=== PATIENT | female | born 1980 | race African-American/Black ===

== ENCOUNTER 2020-10-27 23:06 | Emergency (ER) | payer MEDICAID ==
[~2020-10-27] VITALS: Ht 170.2 cm; Wt 83.0 kg
[2020-10-27] MEDS ORDERED: HYDROCODONE/ACETAMINOPHEN 5/325MG TABLET PO ONE (23:30)
[2020-10-27] MEDS ORDERED: BACITRACIN ZINC OINT UDPKT TOP ONE (23:30)
[2020-10-27] MEDS ORDERED: LIDOCAINE HCL/PF 1% 10 MG/ML 5ML VIAL INFIL ONE (23:30)
[2020-10-27 23:36] VITALS: BP 151/95
[2020-10-28] MEDS ORDERED: CEPHALEXIN 250MG CAPSULE PO ONE (01:00)
[2020-10-28] MEDS ORDERED: DOXYCYCLINE HYCLATE 100MG CAPSULE PO ONE (01:00)
[2020-10-28] MEDS ORDERED: DOXY100C2 MT (01:02)
[2020-10-28] MEDS ORDERED: CEPH500C2 MT (01:02)
[2020-10-28] MEDS ORDERED: IBUP-2029 MT (01:03)
[2020-10-28] MEDS ORDERED: HYDR-4001 MT (01:18)
== END 2020-10-28 02:17 | disposition home or self-care (01) ==
LOC: ER 23:06
DX: L03.012 Cellulitis of left finger (principal); I10 Essential (primary) hypertension
CPT/HCPCS: 10060; 73130; 81025; 99284; J3490; Z7610

== ENCOUNTER 2020-11-26 22:59 | Emergency (ER) | payer MEDICAID ==
[~2020-11-26] VITALS: Ht 170.2 cm; Wt 75.0 kg
[~2020-11-26 22:59] MED LIST: CEPH500C2 MT; DOXY100C5 MT; HYDR-4001 MT; IBUP-2029 MT
[2020-11-26 23:05] VITALS: BP 133/90
[2020-11-27 00:46] LABS: BASOPHILS % 1.3 % (0.0-2.0); EOSINOPHILS % 1.5 % (0.0-5.0); HEMATOCRIT. 30.8 % (36.0-48.0); HEMOGLOBIN. 10.2 g/dL (12.0-16.0); LYMPHOCYTES % 35.8 % (20.0-50.0); MEAN CORPUSCULAR HEMOGLOBIN 29.9 pg (28.0-32.0); MEAN CORPUSCULAR VOLUME 90.1 fL (81.0-99.0); MEAN PLATELET VOLUME 7.9 fl (7.4-10.4); MONOCYTES % 5.6 % (2.0-8.0); NEUTROPHILS % 55.8 % (40.0-76.0); PLATELET 388 x1000/uL (130-400); RED BLOOD CELL COUNT 3.42 mill/uL (4.2-5.4); RED CELL DISTRIBUTION WIDTH 17.4 % (11.6-14.6)
[2020-11-27 00:47] LABS: CHLORIDE 106 mEq/L (98-107)
[2020-11-27 01:04] LABS: CLARITY URINE CLEAR (CLEAR); COLOR URINE YELLOW (YELLOW); KETONES URINE NEGATIVE (NEGATIVE); LEUKOCYTE ESTERASE URINE TRACE (NEGATIVE); NITRITE URINE NEGATIVE (NEGATIVE); OCCULT BLOOD URINE 1+ (NEGATIVE); PROTEIN URINE NEGATIVE (NEGATIVE); SPECIFIC GRAVITY URINE 1.004 (1.005-1.030); UROBILINOGEN URINE 0.2 E.U./dL (0.2-1.0)
== END 2020-11-27 01:36 | disposition left against medical advice (07) ==
LOC: ER 22:59
DX: R10.30 Lower abdominal pain, unspecified (principal); I10 Essential (primary) hypertension
CPT/HCPCS: 36415; 80053; 81003; 85025; 99283